=== PATIENT | female | born 1945 | race African-American/Black ===

== ENCOUNTER 2017-05-28 13:30 | Observation (INO) ==
[2017-05-28] MEDS ORDERED: MAGNESIUM SULF RIDER 2 GM in PREMIX 1 EACH IV PRN (17:37)
[2017-05-28] MEDS ORDERED: MAGNESIUM SULF RIDER 4 GM in PREMIX 1 EACH IV PRN (17:37)
[2017-05-28] MEDS ORDERED: DOCUSATE SODIUM 100 MG CAPSULE PO PRN (17:37)
[2017-05-28] MEDS ORDERED: ACETAMINOPHEN 325 MG TABLET PO PRN (17:37)
[2017-05-28] MEDS ORDERED: ONDANSETRON 4 MG/2 ML VIAL IV PRN (17:37)
[2017-05-28] MEDS ORDERED: ZALEPLON 5 MG CAPSULE PO PRN (17:37)
--- NOTE | 2017-05-28 17:47 | Cardiology History & Physical ---
Assessment and Plan - Time spent with patient Time spent with patient: Greater than 30 minutes (Chart and film review, exam, interview and orders) (1) Dementia Status: Acute Current Visit: Yes Qualifiers: Dementia type: Alzheimer's disease (2) Syncope Status: Acute Assessment and plan: Please see the HPI for the differential. The patient will be placed on an event monitor at discharge for follow-up with Dr. Harris. We will also adjust medications. Current Visit: Yes (3) Abdominal aortic aneurysm Status: Chronic Assessment and plan: We will get abdominal ultrasound in the morning Current Visit: No (4) Abnormal EKG Status: Chronic Current Visit: No (5) Elevated troponin level Status: Chronic Current Visit: No History of Present Illness Chief complaint: "She passed out" History of present illness: Ms. Estrada is a 71 year old female patient previously seen by cardiology by Dr. Harris earlier this year when she had a left heart catheterization. I reviewed those films she had moderate first diagonal disease and end-diastolic pressure was elevated her LV function is normal. The patient has dementia and resides with her daughter. She goes to an adult daycare her class in [facility] and she rides the bus. Today she was riding the bus and had a syncopal episode just in front of [facility] she was cared there and evaluated by her primary care physician Dr. Osvaldo Barth who called me for admission to the hospital. She has an EKG from the ear that shows chronic changes unchanged from previously. Of particular note is that her QT interval is not prolonged it is only 447 ms. She has no AV block. The patient had a episode very similar to this last Friday and was evaluated in the emergency room by Dr. Rafael Parr subsequent transferred here to our facility evaluated in the emergency room and released. She has had numerous labs and has a chronically elevated troponin which resulted in her cath in October. She also had CT scans of the head etc. The daughter states that her symptoms started after she had adjustments in her blood pressure medications and had 2 new medications started last week. The patient did not hit her head, lose bowel or bladder control, hit her tongue or have involuntary motion. Both episodes were in the seated position and both were witnessed. The first one was in a classroom setting the second one was while seated in the van. Her daughter states that the witnesses say that she was out for "just a second." This certainly sounds like true syncope. Highest on the list of these spells would be true rhythmic genic syncope she also has previously been on tramadol and a Garrett-Buck attack would also be high on the differential. Of course her history of abdominal aortic aneurysm also must be entertained is possibly an etiology of syncope or abdominal exam is soft and she did not have any abdominal pain during any of these episodes. The patient's daughter puts her medications in a daily pillbox and ensures compliance. The patient daughter has not noted any extra pills missing and they have apparently all been taken at the appropriate times. Home Medications Medication Instructions Recorded Confirmed Type Aspirin EC Tab 325 mg PO DAILY 10/25/16 10/25/16 History Fluvoxamine Maleate 100 mg PO BEDTIME 10/25/16 10/25/16 History Metoprolol Succinate 25 mg PO DAILY 10/25/16 10/25/16 History Mirtazapine 15 mg PO BEDTIME 10/25/16 10/25/16 History Potassium Chloride 20 meq PO DAILY 10/25/16 10/25/16 History Trazodone HCl 100 mg PO BEDTIME 10/25/16 10/25/16 History buPROPion SR [Wellbutrin Sr] 150 mg PO BID 10/25/16 10/25/16 History clonazePAM TAB [KlonoPIN] 0.5 mg PO BID 10/25/16 10/25/16 History Acetaminophen Tab [Tylenol Tab] 325 mg PO BID #30 tablet 10/26/16 Rx Gabapentin Cap/Tab [Neurontin 100 mg PO TID #90 capsule 10/26/16 Rx Cap/Tab] Simvastatin 10 mg PO BEDTIME #30 tablet 10/26/16 Rx traMADol TAB [Ultram] 50 mg PO BID #30 tablet 10/26/16 Rx Allergies Allergy/AdvReac Type Severity Reaction Status Date / Time No Known Allergies Allergy Verified 10/25/16 13:33 - Constitutional Constitutional: Absent: anorexia, chills - EENT Eyes: Absent: blurry vision, diplopia Ears: Absent: decreased hearing, ear discharge Nose, mouth and throat: Absent: dysphagia, lip swelling - Cardiovascular Cardiovascular: Present: lightheadedness. Absent: chest pain at rest, chest pain with activity, claudication, dyspnea, dyspnea on exertion, edema, radiating jaw, neck or arm pain, orthopnea, palpitations - Respiratory Respiratory: Absent: cough, dyspnea, dyspnea on exertion - Gastrointestinal Gastrointestinal: Absent: abdominal pain, bloating, dyspepsia, fecal incontinence, heartburn, melena, nausea, vomiting, jaundice - Genitourinary Genitourinary: Absent: abnormal vaginal bleeding, dysuria, flank pain, menorrhagia - Musculoskeletal Musculoskeletal: Absent: arthralgias, joint swelling - Neurological Neurological: Absent: abnormal gait, disequilibrium - Psychiatric Psychiatric: Present: anxiety, difficulty concentrating, memory loss. Absent: auditory hallucinations, confusion, homicidal ideation, panic attacks, suicidal ideation, visual hallucinations - Endocrine Endocrine: Absent: cold intolerance, fatigue, heat intolerance, polydipsia - Hematologic/Lymphatic Hematologic/Lymphatic: Absent: easy bleeding, easy bruising Medical,Surgical,& Family Hx - Medical History Cardio: History of: Hypertension Psychological: History of: Anxiety Disorders, Depression Genitourinary: History of: Recurring Urinary Tract Infections - Surgical History Cardiac Surgeries: Sugical HX of: Cardiac Catheterization HEENT Surgeries: Patient denies: Tonsilectomy & Adenoidectomy Abdominal Surgeries: Patient denies: Abdominal Surgery Orthopedic Surgeries: Surgical HX of;: Orthopedic Surgery (right shoulder pins from fx) - Family History Family History: Reports;: Family Hypertension - Social History Smoking Status: Former smoker Frequency of Alcohol Use: None Marital Status: Lives With:: Daughter Functional capacity: independent ambulation Cardiology Physical Exam - Constitutional Vitals: Vital Signs Temp Pulse Resp BP Pulse Ox 98.4 F 56 L 20 140/66 98 05/28/17 16:57 05/28/17 16:57 05/28/17 16:57 05/28/17 16:57 05/28/17 16:57 Intake and Output 05/28/17 05/28/17 05/28/17 07:59 15:59 23:59 Other: Weight 68.039 kg Patient Weight 05/28/17 23:59 Weight 68.039 kg General appearance: normal weight, other (Frail and thin) - Head Head exam: Present: normal inspection - Eye Eye exam: Present: EOMI Pupils: Present: DIANE - Neck Neck exam: Present: normal inspection - Respiratory Respiratory exam: Present: clear to auscultation bilaterally - Cardiovascular Cardiovascular exam: Present: regular rate and rhythm (No gallop or rub. Soft aortic sclerotic murmur.) - GI/Abdominal GI/Abdominal exam: Present: normal bowel sounds - Extremities Exam Extremities exam: Present: normal inspection - Back Exam Back exam: Present: normal inspection - Neurological Exam Neurological exam: Present: alert, oriented X3, CN II-XII intact - Psychiatric Psychiatric exam: Present: normal affect, other (hyperactive) - Skin Skin exam: Present: normal color, other (no cords or edema in the LE) Result/EKG - EKG EKG results: interpreted by me (Normal sinus rhythm with diffuse ST segment depression and T-wave inversion)
[2017-05-28] MEDS ORDERED: hydrALAZINE 20 MG/1 ML VIAL IV PRN (17:55)
[2017-05-28] MEDS ORDERED: ENOXAPARIN 40 MG/0.4 ML SYRINGE SUBCUT SCH (18:00)
--- NOTE | 2017-05-28 18:21 | XRay Report ---
XR chest 2V Indication: Syncope. Chest 2 views: Comparison 10/25/2016. Heart has decreased in size is now normal. Mediastinal contours unremarkable. Significantly coarsened interstitial markings of both lungs are again shown diffusely, although not as severe as previous. Suspect this is primarily senile scarring. No focal pneumonia. Pleural spaces are clear. Orthopedic hardware left humerus again shown. Impression: Resolution of cardiomegaly since October. Interstitial prominence of both lungs again shown, not as severe. Suspect this is primarily senile interstitial scarring. PROCEDURE INTERPRETED AT [facility] DEPARTMENT OF RADIOLOGY Final Report Signed by: Jack Pereira M.D.
[2017-05-28 18:23] LABS: Basophils % 0.3 % (0.0-0.8); Eosinophils % 0.6 % (0.00-10.9); Hematocrit 35.1 VOL% (35.7-47.0); Hemoglobin 11.2 GM/DL (12.0-16.0); Immature Granulocytes % 0.3 %; Immature Granulocytes Absolute 0.02 #; Lymphocytes # 2.4 10*3/uL (1.4-4.0); Lymphocytes % 35.9 % (21.3-54.2); Mean Corpuscular HGB Conc 31.9 GM/DL (32-36); Mean Corpuscular Hemoglobin 25 PG (27-34); Mean Corpuscular Volume 77.3 FL (87-102); Mean Platelet Volume 9.8 FL (9.6-12.0); Monocytes # 0.5 10*3/uL (0.11-0.8); Monocytes % 7.7 % (1.7-12.7); Neutrophils # 3.7 10*3/uL (1.4-7.4); Neutrophils % 55.2 % (38.7-73.9); Platelet Count 345 T/CUMM (130-400); Red Blood Count 4.54 MC/CUMM (3.8-5.5); Red Cell Distribution Width 16.6 % (9.3-17.3); White Blood Count 6.8 T/CUMM (4-12)
[2017-05-28 18:57] LABS: Calcium 9.4 MG/DL (8.5-10.1); Magnesium 2.5 MG/DL (1.8-2.4); Osmolality,Calculated 271.1 MOS/KG (273-304); Thyroid Stimulating Hormone 1.22 uIU/ml (0.358-3.74)
[2017-05-28] MEDS ORDERED: FLUVOXAMINE MALEATE 100 MG PO SCH (21:00)
[2017-05-28] MEDS ORDERED: MIRTAZAPINE 15 MG TABLET PO SCH (21:00)
[2017-05-28] MEDS: GABAPENTIN 100 MG CAPSULE PO SCH (21:33)
[2017-05-28] MEDS: clonazePAM 0.5 MG TABLET PO SCH (21:33)
[2017-05-28] MEDS: buPROPion SR 150 MG TABLET PO SCH (21:33)
[2017-05-29 08:03] VITALS: BP 135/72
--- NOTE | 2017-05-29 08:12 | EKG Report ---
Stationary ECG Study [facility] Test Date: 05/29/2017 7:28:57 AM Pat Name: GIORGIO STEINER Department: Room: 277 Gender: F Carpet Installation Specialist: ANITA : 1945 Requested by: Britni Alexis Order Number: [id number] Reading MD: GIRISH CERRATO Intervals [place] Rate: 84 P: 64 CT: 156 QRS: 84 QRSD: 88 T: -55 QT: 385 QTc: 426 Interpretive Statements SINUS RHYTHM WITH OCCASIONAL VENTRICULAR PREMATURE COMPLEXES POSSIBLE LEFT ATRIAL ABNORMALITY LEFT VENTRICULAR HYPERTROPHY AND ST-T CHANGE Electronically Signed On 05-29-17 17:31:43 CDT by GIRISH CERRATO [email or web address]
--- NOTE | 2017-05-29 08:31 | Ultrasound Report ---
History is syncope Comparison August 29, 2006 hepatic and splenic size and echotexture is normal No gallstones or biliary ductal dilatation seen Visualized pancreas, IVC, and aorta are normal in size. The minimal atherosclerotic changes in the abdominal aorta present which measures up to 2.5, 2.2, and 1.6 cm at its proximal mid and distal aspects respectively. No renal hydronephrosis seen bilaterally. There is a 1.0 cm right renal cyst. Impression: No acute pathology seen The Ultrasound images were captured and stored. PROCEDURE INTERPRETED AT [facility] DEPARTMENT OF RADIOLOGY Final Report Signed by: Dr. Ary Krishnamurthy
[2017-05-29] MEDS ORDERED: ASPIRIN EC 81 MG TABLET PO SCH (09:00)
[2017-05-29] MEDS ORDERED: POTASSIUM CHLORIDE 20 MEQ TABLET PO SCH (09:00)
[2017-05-29] MEDS ORDERED: PANTOPRAZOLE 40 MG TABLET PO SCH (09:00)
[2017-05-29] MEDS: clonazePAM 0.5 MG TABLET PO SCH (09:18)
[2017-05-29] MEDS: GABAPENTIN 100 MG CAPSULE PO SCH (09:19)
[2017-05-29] MEDS: buPROPion SR 150 MG TABLET PO SCH (09:19)
--- NOTE | 2017-05-29 09:35 | Discharge Summary ---
Hospital Course - Hospital Course Hospital Course: Ms. Estrada presented with 2 episodes of syncope exactly 1 week apart. She is been evaluated at the emergency room at [facility]. She was seen in the emergency room and [facility] 1 week ago. She has a chronic static troponin elevation. She has dementia and she has had many new medicine started that seemed to have precipitated these episodes. There is nothing in her history to suggest these are seizures. Her medications were adjusted while she was in the hospital she had no syncope or near syncope. She has had a low risk left heart catheterization within the last few months by her reducing salon attendant Dr. Harris. She was on a beta-len and bradycardia could have been the precipitating factor other arrhythmia. Because of her history of "aneurysm" abdominal ultrasound was performed no acute pathology was seen. Please see that report for details. I feel the patient has benefited maximally from hospitalization. We will try to minimize her medications to mitigate the risk of these medications to her passing out. Her daughter Varsha was very helpful in giving history as the patient is not able to give significant history. Her daughter is excellent at providing her with pillboxes on a weekly kit planner to keep her medication straight. We will arrange for the patient to have an event monitor at discharge and follow-up with Dr. Harris in one month. - Time spent with patient Time with patient DS: Greater than 30 minutes (Exam, chart review, image reviewed discharge planning and orders) Diagnosis - Discharge Diagnosis (1) Dementia Status: Chronic (2) Syncope Status: Acute (3) Abdominal aortic aneurysm Status: Chronic (4) Abnormal EKG Status: Chronic (5) Elevated troponin level Status: Chronic Specialty Discharge - Follow Up or Referrals Follow up with: Nader Harris MD [Physician] - 1 Month (Event monitor in the interim to be reviewed at follow up.) Discharge Plan - Discharge Data Disposition: Disch To Home/Self Care Condition at Discharge: Stable Discharge Diet: advance to your usual diet Activity: resume usual activities as tolerated Hygiene: no restrictions, may shower, may tub bathe Weight Bearing at Discharge: full weight bearing, weight bear as tolerated Contact your physician if you experience:: fever over 101, Difficulty voiding, Redness or swelling, Nausea/Vomiting, Shortness of breath, Bleeding, pain uncontrolled by pain medications - Discharge Medications New Acetaminophen Tab [Tylenol Tab] 650 mg PO Q4H PRN tablet PRN Reason: Fever, Headache, Mild Pain Aspirin EC Tab 81 mg PO DAILY tablet Continue clonazePAM TAB [KlonoPIN] 0.5 mg PO BID Fluvoxamine Maleate 100 mg PO BEDTIME Potassium Chloride 20 meq PO DAILY Mirtazapine 15 mg PO BEDTIME Gabapentin Cap/Tab [Neurontin Cap/Tab] 100 mg PO TID #90 capsule Simvastatin 10 mg PO BEDTIME #30 tablet buPROPion SR [Wellbutrin Sr] 150 mg PO BID Acetaminophen Tab [Tylenol Tab] 325 mg PO BID #30 tablet Discontinued Trazodone HCl 100 mg PO BEDTIME Metoprolol Succinate 25 mg PO DAILY Aspirin EC Tab 325 mg PO DAILY traMADol TAB [Ultram] 50 mg PO BID #30 tablet - Follow Up or Referral Follow Up: Nader Harris MD [Physician] - 1 Month (Event monitor in the interim to be reviewed at follow up.) - Forms/Instructions Additional Discharge Instructions: Keep a blood pressure and HR log and take to Dr. Harris's office at follow up. Wear the monitor until follow up with Dr. Harris. Exam - Constitutional Vitals: Period Temp Pulse Resp BP Sys/Allen Pulse Ox Last 24 Hr 97.2 F-98.4 F 56-85 16-20 123-162/65-72 97-100 General appearance: normal weight - Head Head exam: Present: normal inspection - Eye Eye exam: Present: EOMI Pupils: Present: DIANE - Neck Neck exam: Present: normal inspection - Respiratory Respiratory exam: Present: clear to auscultation bilaterally - Cardiovascular Cardiovascular exam: Present: regular rate and rhythm (She has an S4 and 3 out of 6 murmur of mitral regurgitation) - GI/Abdominal GI/Abdominal exam: Present: normal bowel sounds (She complains of right flank pain but has normal abdominal ultrasound and no reproducible tenderness with good bowel sounds) - Extremities Exam Extremities exam: Present: normal inspection - Back Exam Back exam: Present: normal inspection - Neurological Exam Neurological exam: Present: alert - Psychiatric Psychiatric exam: Present: normal affect - Skin Skin exam: Present: normal color, warm, dry Discharge Results Labs on day of discharge: Labs from last 24 hours 05/28/17 05/28/17 17:49 17:49 WBC 6.8 RBC 4.54 Hgb 11.2 L Hct 35.1 L MCV 77.3 L MCH 25 L MCHC 31.9 L RDW 16.6 Plt Count 345 MPV 9.8 Neut % (Auto) 55.2 Lymph % (Auto) 35.9 [place] % (Auto) 7.7 Eos % (Auto) 0.6 Baso % (Auto) 0.3 Neut # (Auto) 3.7 Lymph # (Auto) 2.4 [place] # (Auto) 0.5 Eos # (Auto) 0.0 Baso # (Auto) 0.0 Immature Gran % 0.3 Nucleated RBC % 0.0 Immature Gran # 0.02 Nucleated RBCs # 0.00 Immature Plt Fraction 0.0 Sodium 135 L Potassium 4.0 Chloride 100 Carbon Dioxide 27 Anion Gap 12.0 BUN 20 H Creatinine 1.00 GFR Calculation 66 BUN/Creatinine Ratio 20.00 Glucose 83 Calculated Osmolality 271.1 L Calcium 9.4 Magnesium 2.5 H TSH 3rd Generation 1.220 - Imaging and Cardiology Cardiology Procedure: image reviewed by me, report reviewed by me Procedure: Ultrasound: report reviewed by me (No acute pathology on abdominal ultrasound) - Additional Comments 30 day event monitor through [facility] DS: Provider Date of admission: 05/28/17 16:36 Primary care physician: . No PCP Attending physician on admission: Meghan Jarvis DO Discharging clinician: Meghan Jarvis DO Expected date of discharge: 05/29/17
== END 2017-05-29 10:50 | disposition home or self-care (01) ==
LOC: INTOOBSV 16:36 → N.TELES 16:36
PROVIDERS: ADMIT Internal Medicine Cardiovascular Disease; ATTEND Internal Medicine Cardiovascular Disease